=== PATIENT | female | born 1950 | race Caucasian/White ===

== ENCOUNTER 2022-08-30 10:58 | Outpatient (CLI) | payer MEDICARE, BC ==
[2022-08-30 12:32] LABS: BILIRUBIN,URINE NEGATIVE (NEGATIVE); COLOR,URINE YELLOW (YELLOW); LEUKOCYTE ESTERASE ,URINE NEGATIVE (NEGATIVE); NITRITE, URINE NEGATIVE (NEGATIVE); PROTEIN,URINE NEGATIVE (NEGATIVE); UGLUCOSE NEGATIVE (NEGATIVE); UROBILINOGEN,URINE 0.2 EU/dL (0.2)
[2022-08-30 12:38] LABS: BASOPHILS % (AUTO) 0.4 % (0.0-2.0); EOSINOPHILS % (AUTO) 0.4 % (0.0-6.0); HEMATOCRIT 39 % (33-45); HEMOGLOBIN 12.7 g/dL (11.5-14.8); LYMPHOCYTES # (AUTO) 1.4 K/uL (0.8-4.8); LYMPHOCYTES % (AUTO) 18.6 % (20.0-44.0); MEAN CORPUSCULAR HGB CONC 33 g/dl (31.0-36.0); MEAN CORPUSCULAR VOLUME 87 fL (82-100); MONOCYTES # (AUTO) 0.6 K/uL (0.1-1.30); MONOCYTES % (AUTO) 7.4 % (2.0-12.0); NEUTROPHILS # (AUTO) 5.5 K/uL (1.8-8.9); NEUTROPHILS % (AUTO) 73.2 % (43.0-81.0); PLATELET COUNT (AUTO) 179 K/uL (150-450); RED BLOOD CELL COUNT(AUTO) 4.42 MIL/uL (4.0-5.2); WHITE BLOOD COUNT (AUTO) 7.5 K/uL (4.3-11.0)
[2022-08-30 12:47] LABS: CALCIUM, SERUM 9.1 mg/dL (8.5-10.1); CREATININE 0.9 mg/dL (0.6-1.3); POTASSIUM 3.8 mmol/L (3.5-5.1)
[2022-08-30 12:50] LABS: BACTERIA,URINE Rare /HPF (None Seen); SQUAMOUS EPITHELIAL CELL,UR Few /HPF (None Seen); WBC,URINE 0-2 /HPF (0-3)
== END 2022-08-30 23:59 | disposition home or self-care (01) ==
LOC: LAB 10:58
PROVIDERS: ATTEND Internal Medicine Pulmonary Disease
DX: Z01.818 Encounter for other preprocedural examination (principal); R94.31 Abnormal electrocardiogram [ECG] [EKG]
CPT/HCPCS: 36415; 71045-TC; 80048-TC; 81001; 85025-TC; 85730-TC

== ENCOUNTER 2022-09-11 14:04 | Outpatient (CLI) | payer MEDICARE, BC | END 2022-09-11 23:59 | disposition home or self-care (01) | LOC: LAB 14:04 | PROVIDERS: ATTEND Dentist Oral and Maxillofacial Surgery | DX: Z01.812 Encounter for preprocedural laboratory examination (principal); Z20.822 Contact with and (suspected) exposure to COVID-19 | CPT/HCPCS: U0003; C9803 ==

== ENCOUNTER 2022-09-14 10:59 | Day surgery (SDC) | payer MEDICARE, BC ==
--- NOTE | 2022-09-14 12:00 | NUR ---
MS JAPANESE TUTOR NOTE PATIENT CAME FROM HOME, AMBULATING WITH NO SIGN OF DISTRESS. IS AWAKE, LYING IN BED. PATIENT IS A/O X4. ABLE TO MAKE NEEDS KNOWN. NO SOB AND NO DISTRESS NOTED. BREATHING EVEN AND UNLABORED IN ROOM AIR. IV ACCESS INSERTED AT RIGHT FOREARM G#20 SL, INTACT, FLUSHING WELL. BED LOCKED IN THE LOWEST POSITION. CALL LIGHT AND TABLE IN EASY REACH. SIDE RAILS UP X2. BED ALARM ON. SKIN ASSESSMENT DONE, SKIN INTACT, BELONGING LIST CHECKED AND SIGNED. MRSA OBTAINED. PATIENT WAS ORIENTED TO ROOM SET UP AND EDUCATED ON THE USE OF CALL LIGHT. WILL CONTINUE TO MONITOR CLOSELY FOR ANY ROGER AND ASSIST PATIENT WITH IMMEDIATE NEEDS.
--- NOTE | 2022-09-14 13:09 | NUR ---
RN NOTE PATIENT IS NOT IN ROOM. PATIENT WAS TAKEN BY OR NURSE FOR BIOPSY ORAL LESIONS, RIGHT MANDIBLE REDUCE NON UNION FRACTURES, LEFT MANDIBLE WITH DR. MARQUES ACOSTA.
[2022-09-14] MEDS ORDERED: FENTANYL PF 100MCG/2ML AMPUL ONE (13:13)
[2022-09-14] MEDS ORDERED: ROCURONIUM BROMIDE 50 MG/5 ML ONE (13:14)
[2022-09-14] MEDS ORDERED: FAMOTIDINE/PF INJ 20 MG/2 ML VIAL IV ONE (13:14)
[2022-09-14] MEDS ORDERED: KETAMINE HCL IN 0.9 % NACL 5 ML ONE (13:14)
[2022-09-14 13:16] VITALS: BP 128/62
[2022-09-14] MEDS ORDERED: VANCOMYCIN 1 GM VIAL ONE (13:22)
[2022-09-14] MEDS ORDERED: LIDOCAINE 2%-EPI 1:100,000 30 ML VIAL ONE (13:22)
[2022-09-14] MEDS ORDERED: DEXAMETHASONE SOD PHOSPHATE 10 MG/ML VIAL ONE (13:22)
[2022-09-14] MEDS ORDERED: ANESTHESIA TRAY IN PYXIS 1 EA TRAY MC ONE (15:32)
[2022-09-14] MEDS ORDERED: HYDROMORPHONE 1 MG/1 ML DISP.SYRIN IV PRN (16:00)
[2022-09-14] MEDS ORDERED: IV NS 0.9% 1,000 ML IV PRN (16:00)
[2022-09-14] MEDS ORDERED: ONDANSETRON HCL/PF 4 MG/2 ML VIAL IV PRN (16:00)
--- NOTE | 2022-09-14 16:04 | NUR ---
RN NOTE PATIENT CAME BACK FROM SURGERY. RECEIVED REPORT FROM OR NURSE. VITALS TAKEN AND STABLE. PATIENT IS COMFORTABLE, RESTING IN THE BED. WILL CONTINUE TO MONITOR
--- NOTE | 2022-09-14 19:21 | NUR ---
MS RN CLOSING NOTE PATIENT IS AWAKE, LYING IN BED. PATIENT IS A/O X4. ABLE TO MAKE NEEDS KNOWN. NO SOB AND NO DISTRESS NOTED. BREATHING EVEN AND UNLABORED IN ROOM AIR. IV ACCESS AT RIGHT FOREARM G#20 WITH NS AT 30 ML/HR, INTACT, INFUSING WELL. BED LOCKED IN THE LOWEST POSITION. CALL LIGHT AND TABLE IN EASY REACH. SIDE RAILS UP X2. BED ALARM ON. NO PAIN NOTED AT THE MOMENT. ICE APPLIED ON FACE BILATERAL ORDERED. PATIENT TOLERATED DIET WELL, NO NAUSEA, PATIENT VOIDED X3 DURING SHIFT. D/C EXIT CARE DONE, PRINTED AND SIGNED. BELONGING LIST PRINTED AND SIGNED. PATIENT'S WAITING FOR BROTHER TO COME PICK HER UP. ALL NEEDS ATTENDED. WILL ENDORSE TO SUPERVISOR WHITE SUGAR NURSE
--- NOTE | 2022-09-14 20:45 | NUR ---
MS SKEIN STRAIGHTENER NOTE RECEIVED PATIENT FROM AM SHIFT NURSE; PATIENT IS A/O X 4, ABLE TO MAKE NEEDS KNOWN; S/P SURGERY; STABLE ON ROOM AIR, BREATHING EVENLY AND NO S/S OF DISTRESS NOTED; NO COMPLAINTS AND PAIN AT THIS TIME; DISCHARGE INSTRUCTIONS AND EXIT FOLDER GIVEN, VERBALIZED UNDERSTANDING; REMOVED IV ACCESS ON RIGHT HAND, CHECKED FOR COMPLETENESS AND APPLIED PRESSURE DRESSING; ID BAND REMOVED; CHECKED FOR PATIENT'S BELONGINS WITH ANNEALING FURNACE OPERATOR AT BEDSIDE; PATIENT WAS ACCOMPANIED BY ANNEALING FURNACE OPERATOR GOING DOWN THE LOBBY WHERE HER BROTHER IS WAITING; LEFT FACILITY IN STABLE CONDITION AND IN PLEASANT MOOD AT 2039H.
== END 2022-09-14 18:00 | disposition home or self-care (01) ==
LOC: DS 10:59 → UNDOADMIN 11:00 → MED 11:00 → DS 18:00 → UNDODISIN 20:45
PROVIDERS: ATTEND Dentist Oral and Maxillofacial Surgery
DX: S02.609K Fracture of mandible, unspecified, subsequent encounter for fracture with nonunion (principal); X58.XXXD Exposure to other specified factors, subsequent encounter; T86.831 Bone graft failure; M89.38 Hypertrophy of bone, other site; K09.9 Cyst of oral region, unspecified; K13.79 Other lesions of oral mucosa; Z86.19 Personal history of other infectious and parasitic diseases
CPT/HCPCS: 20680; 21461; C1889; 87081-TC; 88305-TC; 88311-TC; A4217; A4223; C9803; G0378; J1100; J2405; J2704; J2765; J3010; J3370; J3490; J7030; U0003